=== PATIENT | male | born 1980 | race Caucasian/White ===

== ENCOUNTER 2019-01-19 14:31 | Emergency (ER) | payer BC ==
[2019-01-19 14:43] VITALS: BP 150/98; PULSE 95; RESP 16; TEMP 97.8
--- NOTE | 2019-01-19 15:15 | XR ---
EXAMINATION TYPE: XR ankle complete RT DATE OF EXAM: 01/19/2019 COMPARISON: NONE HISTORY: Pain FINDINGS: Three views of the ankle demonstrate the ankle mortise to be intact and symmetric. The joint spaces are preserved. The osseous structures are intact. There is a bony density inferior to the medial ma lleolus which appears corticated and chronic. Tiny spur involving the calcaneus. IMPRESSION: 1. No definite acute fracture or dislocation, if symptoms persist follow-up study in 7 to 10 days wou ld be suggested.
--- NOTE | 2019-01-19 15:16 | XR ---
EXAMINATION TYPE: XR foot complete RT DATE OF EXAM: 01/19/2019 COMPARISON: NONE HISTORY: Pain TECHNIQUE: Three views are submitted. FINDINGS: The osseous structures are intact. There is no acute fracture or dislocation. Joint spaces are p reserved. IMPRESSION: 1. No acute fracture or dislocation. If symptoms persist, follow-up exam in 7 to 10 days could be ob tained.
--- NOTE | 2019-01-19 15:41 | XR ---
EXAMINATION TYPE: XR tibia fibula RT DATE OF EXAM: 01/19/2019 CLINICAL HISTORY: Pain after twisting injury. TECHNIQUE: Two views of the right leg are obtained. COMPARISON: Right ankle x-ray earlier today. FINDINGS: There is no acute fracture or dislocation seen in the right tibia or fibula. The visualiz ed right knee joint appears within normal limits. Suspect old avulsion fracture from medial malleolus redemonstrated. The overlying soft tissue appears unremarkable. IMPRESSION: There is no acute fracture or dislocation seen in the right tibia or fibula.
--- NOTE | 2019-01-19 16:25 | ED ---
General Adult HPI - General Chief complaint: Extremity Injury, Lower Stated complaint: ankle injury Time Seen by Provider: 01/19/19 14:45 Source: patient, RN notes reviewed, old records reviewed Mode of arrival: wheelchair Limitations: no limitations - History of Present Illness Initial comments: 39-year-old male patient past history presents ED after he had a right ankle inversion injury last night. Patient reports that he was walking downstairs, had a right inversion ankle injury. Patient denies any other injury, trauma to head or neck. Patient has been nonambulatory secondary to pain and right ankle, patient denies all other complaints. Systemic: Pt denies fatigue, fever/chills, rash. Pt denies weakness, night sweats, weight loss. Neuro: Pt denies headache, visual disturbances, syncope or pre-syncope. HEENT: Pt denies ocular discharge or irritation, otalgia, rhinorrhea, pharyngitis or notable lymphadenopathy. Cardiopulmonary: Pt denies chest pain, SOB, heart palpitations, dyspnea on exertion. Abdominal/GI: Pt denies abdominal pain, n/v/d. : Pt denies dysuria, burning w/ urination, frequency/urgency. Denies new onset urinary or bowel incontinence. MSK: Pt denies loss of strength or function in extremities. Neuro: Pt denies new onset weakness, paresthesias. - Related Data Previous Rx's Medication Instructions Recorded Ibuprofen [Motrin] 600 mg PO Q6HR PRN #40 day 01/19/19 Allergies Allergy/AdvReac Type Severity Reaction Status Date / Time No Known Allergies Allergy Verified 01/19/19 14:42 Review of Systems ROS Statement: Those systems with pertinent positive or pertinent negative responses have been documented in the HPI. ROS Other: All systems not noted in ROS Statement are negative. Past Medical History Past Medical History: No Reported History History of Any Multi-Drug Resistant Organisms: None Reported Past Surgical History: Hernia Repair Past Psychological History: No Psychological Hx Reported Smoking Status: Current every day smoker Past Alcohol Use History: Occasional Past Drug Use History: None Reported General Exam - General Exam Comments Initial Comments: Constitutional: NAD, AOX3, Pt has pleasant affect. HEENT: NC/AT, trachea midline, neck supple, no lymphadenopathy. Posterior pharynx non erythematous, without exudates. External ears appear normal, without discharge. Mucous membranes moist. Eyes PERRLA, EOM intact. There is no scleral icterus. No pallor noted. Cardiopulmonary: RRR, no murmurs, rubs or gallops, no JVD noted. Lungs CTAB in anterior and posterior morse. No peripheral edema. Abdominal exam: Abdomen soft and non-distended. Abdomen non-tender to palpation in all 4 quadrants. Bowel sounds active in LLQ. No hepatosplenomegaly. No ecchymosis Neuro: CN II-XII grossly intact. No nuchal rigidity. MSK: Right ankle neurovascularly intact, no ecchymoses, mild tenderness to palpation in the lateral malleolus. Plantar and dorsiflexion intact. Patient able to his. ambulate with antalgic gait. No posterior calf tenderness bilaterally, homans sign negative bilaterally. Posterior tibialis and radial pulse +2 bilaterally. Sensation intact in upper and lower extremities. Full active ROM in upper and lower extremities, 5/5 stregnth. Limitations: no limitations Course Vital Signs 01/19/19 14:40 Temperature 97.8 F Pulse Rate 95 Respiratory 16 Rate Blood Pressure 150/98 O2 Sat by Pulse 96 Oximetry Medical Decision Making - Medical Decision Making 39-year-old male patient past history presents ED after he had a right ankle inversion injury last night. Patient reports that he was walking downstairs, had a right inversion ankle injury. Patient denies any other injury, trauma to head or neck. Patient has been nonambulatory secondary to pain and right ankle, patient denies all other complaints. Patient vital signs stable, afebrile. Physical exam displayed:Right ankle neurovascularly intact, no ecchymoses, mild tenderness to palpation in the lateral malleolus. Plantar and dorsiflexion intact. Patient able to his. ambulate with antalgic gait. Patient plain films of right ankle-foot anterior fibular did not display acute pathology. Patient placed in a posterior ankle splint. Pt neurovascularly intact after splint placement. Patient not bear weight, use crutches. Patient to follow up with orthopedic surgeon and primary care physician one to 2 days. Patient return to ER for symptoms or condition worsens. Case discussed with Dr. Sow. Disposition Clinical Impression: Ankle sprain Disposition: HOME SELF-CARE Condition: Stable Instructions (If sedation given, give patient instructions): Ankle Sprain (ED) Additional Instructions: Patient to adhere to previously discussed treatment plan and will take medication(s) as directed. Patient to follow up with PCP in 1-2 days. Patient to return to ED if symptoms do not improve. Please do not bear weight on right ankle. Please follow-up with primary care provider and orthopedic surgeon in 1-2 days. Return to ER if condition worsens in any way. Prescriptions: Ibuprofen [Motrin] 600 mg PO Q6HR PRN #40 day PRN Reason: Pain Is patient prescribed a controlled substance at d/c from ED?: No Referrals: None,Stated [Primary Care Provider] - 1-2 days Ben Marvin MD [STAFF PHYSICIAN] - 1-2 days
== END 2019-01-19 16:58 | disposition home or self-care (01) ==
LOC: EC 14:31
DX: S93.401A Sprain of unspecified ligament of right ankle, initial encounter (principal); F17.200 Nicotine dependence, unspecified, uncomplicated; Z98.890 Other specified postprocedural states; X50.1XXA Overexertion from prolonged static or awkward postures, initial encounter; Y93.01 Activity, walking, marching and hiking
CPT/HCPCS: 29515; 99284

== ENCOUNTER → 2019-03-30 | Outpatient (CLI) | payer BC ==
[2019-03-30 19:37] LABS: Cholesterol 262 mg/dL (0-200)
[2019-03-30 21:24] LABS: Hemoglobin A1C 5.5 % (4.0-6.0)
== END | disposition home or self-care (01) ==
LOC: LABWHC1 11:33
PROVIDERS: ATTEND Physician Assistant
DX: Z00.00 Encounter for general adult medical examination without abnormal findings (principal); R53.83 Other fatigue; R63.5 Abnormal weight gain; R73.09 Other abnormal glucose
CPT/HCPCS: 36415; 80061; 83036; 83721; 84402; 84403; 84439; 84443

== ENCOUNTER 2019-12-24 14:51 | Emergency (ER) | payer BC ==
[2019-12-24 15:01] VITALS: BP 117/79; PULSE 94; RESP 18; TEMP 97.5
--- NOTE | 2019-12-24 15:35 | XR ---
EXAMINATION TYPE: XR chest 2V DATE OF EXAM: 12/24/2019 COMPARISON: NONE HISTORY: Cough and congestion TECHNIQUE: 2 views FINDINGS: Heart and mediastinum are normal. Lungs are clear. Diaphragm is normal. Bony thorax appears normal. IMPRESSION: Normal chest.
--- NOTE | 2019-12-24 15:39 | ED ---
General Adult HPI - General Chief complaint: Skin/Abscess/Foreign Body Stated complaint: Lump on neck/Cough/ALONZO Time Seen by Provider: 12/24/19 15:04 Source: patient, RN notes reviewed Mode of arrival: ambulatory - History of Present Illness Initial comments: 39-year-old male presents to the emergency department for a chief complaint of "bump under his chin." Patient states that she has had these 2 bumps for 2-3 weeks. States he saw his primary care provider who gave him an antibiotic, unknown, and a steroid. Patient finished this a week ago without improvement. Patient admits to a dentist who told him that his salivary gland is not producing saliva so it could be an obstruction. Patient states he has an appointment with the ENT on January 12. Patient denies fevers or chills. Patient also presents for cough and congestion. This just started a few days ago.Patient has no other complaints at this time including shortness of breath, chest pain, abdominal pain, nausea or vomiting, headache, or visual changes. - Related Data Previous Rx's Medication Instructions Recorded Ibuprofen [Motrin] 600 mg PO Q6HR PRN #40 day 01/19/19 Fluticasone Nasal Nelson [Flonase 1 spray EA NOSTRIL DAILY 7 Days #1 12/24/19 Nasal Nelson] bottle guaiFENesin [Mucinex] 600 mg PO Q12HR #20 tablet.er 12/24/19 Allergies Allergy/AdvReac Type Severity Reaction Status Date / Time No Known Allergies Allergy Verified 12/24/19 15:01 Review of Systems ROS Statement: Those systems with pertinent positive or pertinent negative responses have been documented in the HPI. ROS Other: All systems not noted in ROS Statement are negative. Past Medical History Past Medical History: No Reported History History of Any Multi-Drug Resistant Organisms: None Reported Past Surgical History: Hernia Repair Past Psychological History: No Psychological Hx Reported Smoking Status: Current every day smoker Past Alcohol Use History: Occasional Past Drug Use History: None Reported General Exam General appearance: alert, in no apparent distress Head exam: Present: atraumatic, normocephalic, normal inspection Eye exam: Present: normal appearance, PERRL, EOMI. Absent: scleral icterus, conjunctival injection, periorbital swelling ENT exam: Present: normal exam, mucous membranes moist, TM's normal bilaterally, normal external ear exam. Absent: normal oropharynx (Patient does have some tenderness of the sublingual salivary duct worse on the right side. He has palpable small induration noted on the underside of the chin about 1 cm x 1 cm. no erythema) Neck exam: Present: normal inspection, full ROM. Absent: tenderness, meningismus, lymphadenopathy, thyromegaly (no induration or lesions palpted of the thyroid) Respiratory exam: Present: normal lung sounds bilaterally. Absent: respiratory distress, wheezes, rales, rhonchi, stridor Cardiovascular Exam: Present: regular rate, normal rhythm, normal heart sounds. Absent: systolic murmur, diastolic murmur, rubs, gallop, clicks Neurological exam: Present: alert Course Vital Signs 12/24/19 14:55 Temperature 97.5 F L Pulse Rate 94 Respiratory 18 Rate Blood Pressure 117/79 O2 Sat by Pulse 95 Oximetry Medical Decision Making - Medical Decision Making Patient was seen and evaluated upon arrival. Vitals are stable. Patient is well-appearing. HPI and physical exam as documented. I discussed risks versus benefits of CAT scan patient to evaluate these nodules. At this time he is in agreement to follow up with ENT as the risks of radiation are high for findings of a benign exam. He has an appointment in about 3 weeks. He denies any changes in these labs and states he will return if they grow larger. I did perform a chest x-ray on patient because of his cough which was negative. Influenza negative. I will prescribe Mucinex and a nasal spray for upper respiratory infection. He will return with any worsening symptoms.I discussed this case with attending Dr. Peralta who agrees with this assessment and treatment plan. - Lab Data Lab Results 12/24/19 Range/Units 15:02 Influenza Type A RNA Not Detected (Not Detectd) Influenza Type B (PCR) Not Detected (Not Detectd) Disposition Clinical Impression: Cough Disposition: HOME SELF-CARE Condition: Good Instructions (If sedation given, give patient instructions): Acute Cough (ED) Additional Instructions: Please follow up with ENT at your scheduled appointment. Continue to try sour candies. If you have worsening symptoms before your appointment return to the emergency department. Otherwise take prescriptions as directed. Prescriptions: Fluticasone Nasal Nelson [Flonase Nasal Nelson] 1 spray EA NOSTRIL DAILY 7 Days #1 bottle guaiFENesin [Mucinex] 600 mg PO Q12HR #20 tablet.er Is patient prescribed a controlled substance at d/c from ED?: No Referrals: Lyla Beltran MD [REFERRING] - 1-2 days Time of Disposition: 16:05
== END 2019-12-24 16:20 | disposition home or self-care (01) ==
LOC: EC 14:51
DX: J06.9 Acute upper respiratory infection, unspecified (principal); R22.0 Localized swelling, mass and lump, head; F17.200 Nicotine dependence, unspecified, uncomplicated
CPT/HCPCS: 71046; 87502; 99283

== ENCOUNTER 2020-02-08 08:28 | Day surgery (SDC) | payer BC ==
--- NOTE | 2020-02-08 10:50 | US ---
ULTRASOUND GUIDED FNA AND CORE BIOPSY PALPABLE NECK MASS: CLINICAL HISTORY: Palpable neck mass FINDINGS: The procedure was explained to the patient. The risks, complications, benefits and alternatives were discussed and any questions were answered. Informed consent was obtained. Patient was placed supin e on the ultrasound table and prepped and draped in the usual sterile fashion. Utilizing a 25 gauge needle, three passes were made into the questioned mass. Additionally, an 18-gauge core biopsy sampl e was obtained. Patient was stable throughout the procedure. Pathology is pending. All elements of maximal barrier technique were utilized. IMPRESSION: 1. Successful ultrasound guided FNA and core biopsy of the requested neck mass.
[2020-02-08 13:46] VITALS: TEMP 97.9
[2020-02-08 13:48] VITALS: PULSE 80; RESP 18
[2020-02-08 13:49] VITALS: BP 148/95
== END 2020-02-08 11:00 | disposition home or self-care (01) ==
LOC: RADPROMAIN 08:28
PROVIDERS: ATTEND Otolaryngology
DX: R59.0 Localized enlarged lymph nodes (principal)
CPT/HCPCS: 10005; 38505; 88305

== ENCOUNTER 2022-12-09 16:45 | Emergency (ER) | payer BC ==
[2022-12-09 17:08] VITALS: BP 154/93; PULSE 99; RESP 16; TEMP 97.3
[2022-12-09 18:30] LABS: Basophils # (A) 0.1 k/uL (0-0.2); Basophils % (A) 1 %; Eosinophils # (A) 0.2 k/uL (0-0.7); Eosinophils % (A) 2 %; HCT 44.6 % (39.0-53.0); HGB 15.8 gm/dL (13.0-17.5); Lymphocytes % (A) 22 %; MCH 31.2 pg (25.0-35.0); MCHC 35.4 g/dL (31.0-37.0); MCV 88.2 fL (80.0-100.0); Mean Platelet Volume 7.2; Monocytes # (A) 0.6 k/uL (0-1.0); Monocytes % (A) 6 %; Neutrophils # (A) 6.2 k/uL (1.3-7.7); Neutrophils % (A) 68 %; Platelet Count 232 k/uL (150-450); RBC 5.06 m/uL (4.30-5.90); RDW 12.1 % (11.5-15.5); WBC 9.2 k/uL (3.8-10.6)
[2022-12-09 18:45] LABS: ALT 217 U/L (4-49); AST 123 U/L (17-59); African American GFR (CKD) >90 (>60 ml/min/1.73 sqM); Alkaline Phosphatase 91 U/L (38-126); Anion Gap 11 mmol/L; Blood Urea Nitrogen 11 mg/dL (9-20); Calcium 9.3 mg/dL (8.4-10.2); Carbon Dioxide 21 mmol/L (22-30); Chloride 105 mmol/L (98-107); Glucose 103 mg/dL (74-99); Non-African American GFR(CKD) >90 (>60 ml/min/1.73 sqM); Sodium 137 mmol/L (137-145); Total Bilirubin 0.9 mg/dL (0.2-1.3); Total Protein 8.6 g/dL (6.3-8.2)
--- NOTE | 2022-12-09 19:01 | CT ---
EXAMINATION TYPE: CT facial bones w con, CT soft tissue neck w con DATE OF EXAM: 12/09/2022 COMPARISON: None HISTORY: left sided pain CT DLP: 505.8 (accession [id number]), 517.7 (accession [id number]) mGycm CONTRAST: CT scan of the neck fascial planes is performed with IV Contrast, patient injected with 100 mL of Iso nish 300. Contrast enhanced CT of the neck patient was performed from the chest through the lung apices. Facial bones: Dental amalgam results in streak artifact limiting portions of the study. Dental caries involving the left first incisor. Small periapical abscess seen on axial image 16 of 100. No evidenc e for soft tissue abscess. Mild soft tissue swelling. AIRWAY: The supraglottic, glottic, and subglottic portions of the airway appear patent and free of mass. SALIVARY GLANDS: The submandibular and parotid glands are free of mass or inflammatory process. THYROID GLAND: No nodules or masses seen. LYMPH NODES: No adenopathy seen greater than 1cm. LUNG APICES: No nodule or mass is seen. OTHER: Vascular structures are patent. No significant degenerative change of the cervical spine. N o abscess seen. Mastoids are well aerated. IMPRESSION: 1.Dental caries involving the left first incisor. Small periapical abscess seen on axial image 16 of 100. No evidence for soft tissue abscess. Mild soft tissue swelling. 2. Unremarkable CT of the neck.
[2022-12-09 19:19] LABS: Potassium 5.2 mmol/L (3.5-5.1)
[2022-12-09] MEDS ORDERED: AMOXIC-POT CLAV 875-125MG 1 EACH TAB PO STA (19:50)
[2022-12-09] MEDS ORDERED: KETOROLAC 15 MG/ML 1 ML VIAL IM STA (19:50)
--- NOTE | 2022-12-09 19:50 | ED ---
General Adult HPI - General Chief complaint: Dental/Oral Stated complaint: dental pain Time Seen by Provider: 12/09/22 17:48 Source: patient Mode of arrival: ambulatory Limitations: no limitations - History of Present Illness Initial comments: Patient is a 42-year-old male presenting with chief complaint of dental pain. Pain is located on the left side and has been ongoing for the last week. Patient has history of dental abscesses due to multiple fractured teeth. He states he has an upcoming appointment with a dentist. He denies any difficulty breathing or swallowing. He does admit to some pain up in the yazidism as well as slightly down the neck. States that drinking water helps make it feel slightly better. - Related Data Previous Rx's Medication Instructions Recorded Ibuprofen [Motrin] 600 mg PO Q6HR PRN #40 day 01/19/19 Fluticasone Nasal Thompson [Flonase 1 spray EA NOSTRIL DAILY 7 Days #1 12/24/19 Nasal Thompson] bottle guaiFENesin [Mucinex] 600 mg PO Q12HR #20 tablet.er 12/24/19 Amoxic-Pot Clav 875-125Mg 1 tab PO Q12HR 7 Days #14 tab 12/09/22 [Augmentin 875-125] Allergies Allergy/AdvReac Type Severity Reaction Status Date / Time No Known Allergies Allergy Verified 12/09/22 17:08 Review of Systems ROS Statement: Those systems with pertinent positive or pertinent negative responses have been documented in the HPI. ROS Other: All systems not noted in ROS Statement are negative. Past Medical History Past Medical History: No Reported History History of Any Multi-Drug Resistant Organisms: None Reported Past Surgical History: Hernia Repair Past Psychological History: No Psychological Hx Reported Smoking Status: Current every day smoker Past Alcohol Use History: Occasional Past Drug Use History: None Reported - Past Family History Mother Family Medical History: Hypertension General Exam Limitations: no limitations General appearance: alert, in no apparent distress Head exam: Present: atraumatic, normocephalic, normal inspection Eye exam: Present: normal appearance, PERRL, EOMI. Absent: scleral icterus, conjunctival injection, periorbital swelling Expanded Mouth exam: Present: normal external inspection, tongue normal. Absent: drooling, trismus, muffled voice Teeth exam: Present: dental caries, fractured tooth #, dental tenderness #, gingival enlargement Throat exam: normal inspection Neck exam: Present: normal inspection, full ROM Neurological exam: Present: alert, oriented X3, CN II-XII intact Psychiatric exam: Present: normal affect, normal mood Skin exam: Present: warm, dry, intact, normal color. Absent: rash Course Vital Signs 12/09/22 17:03 Temperature 97.3 F L Pulse Rate 99 Respiratory 16 Rate Blood Pressure 154/93 O2 Sat by Pulse 96 Oximetry Medical Decision Making - Medical Decision Making Was pt. sent in by a medical professional or institution (, PA, SHOT MAN, urgent care, hospital, or retirement...) When possible be specific @ -No Did you speak to anyone other than the patient for history (EMS, parent, family, police, friend...)? What history was obtained from this source @ -No Did you review nursing and triage notes (agree or disagree)? Why? @ -I reviewed and agree with nursing and triage notes Were old charts reviewed (outside hosp., previous admission, EMS record, old EKG, old radiological studies, urgent care reports/EKG's, retirement records)? Report findings @ -No old charts were reviewed Differential Diagnosis (chest pain, altered mental status, abdominal pain women, abdominal pain men, vaginal bleeding, weakness, fever, dyspnea, syncope, headache, dizziness, GI bleed, back pain, seizure, CVA, palpatations, mental health)? @ -Differential includes tooth pain, dental abscess, Ted's angina, cellulitis and/or abscess extending to the facial structures EKG interpreted by me (3pts min.). @ -As above X-rays interpreted by me (1pt min.). @ -None done CT interpreted by me (1pt min.). @ -No, radiologist report is reviewed. Dental caries involving the left first incisor. Small periapical abscess seen. No evidence for soft tissue abscess. Mild soft tissue swelling. Unremarkable CT of the neck. U/S interpreted by me (1pt. min.). @ -None done What testing was considered but not performed or refused? (CT, X-rays, U/S, labs)? Why? @ -None What meds were considered but not given or refused? Why? @ -None Did you discuss the management of the patient with other professionals (professionals i.e. , MICHAEL, SHOT MAN, lab, RT, psych nurse, social media marketing specialist, stretching machine tender frame, teacher, transport corps officer, field case manager)? Give summary @ -No Was smoking cessation discussed for >3mins.? @ -No Was critical care preformed (if so, how long)? @ -No Were there social determinants of health that impacted care today? How? (Homelessness, low income, unemployed, alcoholism, drug addiction, transportation, low edu. Level, literacy, decrease access to med. care, custodial, rehab)? @ -No Was there de-escalation of care discussed even if they declined (Discuss DNR or withdrawal of care, Hospice)? DNR status @ -No What co-morbidities impacted this encounter? (DM, HTN, Smoking, COPD, CAD, Cancer, CVA, ARF, Chemo, Hep., AIDS, mental health diagnosis, sleep apnea, morbid obesity)? @ -None Was patient admitted / discharged? Hospital course, mention meds given and route, prescriptions, significant lab abnormalities, going to OR and other pertinent info. @ -Patient is a 42-year-old male presenting with chief complaint of left-sided dental pain that been ongoing for the last week. On physical examination there is some tenderness to the yazidism as well as the neck. Due to extensive tenderness lab work are obtained. No leukocytosis. Potassium 5.2, however sample was hemolyzed. Elevated AST and ALT, no current abdominal pain. CT of the face and neck show periapical abscess, no extending abscess. Patient will be treated for dental abscess with Augmentin. Given a dose of Toradol here in the ER. Instructed to follow-up with his dentist, he states he has an upcoming appointment. Follow-up with PCP. Report back to ER with any new or worsening symptoms. Discussed return parameters and answered all questions. Patient conveyed verbal understanding and agreed to the plan. I discussed this case in detail with my attending Dr. Latham Undiagnosed new problem with uncertain prognosis? @ -No Drug Therapy requiring intensive monitoring for toxicity (Heparin, Nitro, Insulin, Cardizem)? @ -No Were any procedures done? @ -No Diagnosis/symptom? @ -Dental abscess Acute, or Chronic, or Acute on Chronic? @ -Acute Uncomplicated (without systemic symptoms) or Complicated (systemic symptoms)? @ -Uncomplicated Side effects of treatment? @ -No Exacerbation, Progression, or Severe Exacerbation? @ -No - Lab Data Result diagrams: 12/09/22 18:21 12/09/22 18:21 Lab Results 12/09/22 12/09/22 Range/Units 18:21 18:21 WBC 9.2 (3.8-10.6) k/uL RBC 5.06 (4.30-5.90) m/uL Hgb 15.8 (13.0-17.5) gm/dL Hct 44.6 (39.0-53.0) % MCV 88.2 (80.0-100.0) fL MCH 31.2 (25.0-35.0) pg MCHC 35.4 (31.0-37.0) g/dL RDW 12.1 (11.5-15.5) % Plt Count 232 (150-450) k/uL MPV 7.2 Neutrophils % 68 % Lymphocytes % 22 % Monocytes % 6 % Eosinophils % 2 % Basophils % 1 % Neutrophils # 6.2 (1.3-7.7) k/uL Lymphocytes # 2.0 (1.0-4.8) k/uL Monocytes # 0.6 (0-1.0) k/uL Eosinophils # 0.2 (0-0.7) k/uL Basophils # 0.1 (0-0.2) k/uL Sodium 137 (137-145) mmol/L Potassium 5.2 H (3.5-5.1) mmol/L Chloride 105 (98-107) mmol/L Carbon Dioxide 21 L (22-30) mmol/L Anion Gap 11 mmol/L BUN 11 (9-20) mg/dL Creatinine 0.88 (0.66-1.25) mg/dL Est GFR (CKD-EPI)AfAm >90 (>60 ml/min/1.73 sqM) Est GFR (CKD-EPI)NonAf >90 (>60 ml/min/1.73 sqM) Glucose 103 H (74-99) mg/dL Calcium 9.3 (8.4-10.2) mg/dL Total Bilirubin 0.9 (0.2-1.3) mg/dL AST 123 H (17-59) U/L ALT 217 H (4-49) U/L Alkaline Phosphatase 91 (38-126) U/L Total Protein 8.6 H (6.3-8.2) g/dL Albumin 5.0 (3.5-5.0) g/dL Disposition Clinical Impression: Dental abscess Disposition: HOME SELF-CARE Condition: Good Instructions (If sedation given, give patient instructions): Dental Abscess (ED) Additional Instructions: Follow-up with dentist. Report back to ER with any new or worsening symptoms. Take medication as prescribed. Prescriptions: Amoxic-Pot Clav 875-125Mg [Augmentin 875-125] 1 tab PO Q12HR 7 Days #14 tab Is patient prescribed a controlled substance at d/c from ED?: No Referrals: None,Stated [Primary Care Provider] - 1-2 days Time of Disposition: 19:50
[2022-12-09] MEDS ORDERED: KETOROLAC 15 MG/ML 1 ML VIAL IVP STA (20:06)
== END 2022-12-09 20:11 | disposition home or self-care (01) ==
LOC: EC 16:45
DX: K04.7 Periapical abscess without sinus (principal); F17.200 Nicotine dependence, unspecified, uncomplicated
CPT/HCPCS: 36415; 80053; 85025; 70487; 70491; 99283; 96374; J1885; Q9967

== ENCOUNTER 2023-06-16 12:10 | Emergency (ER) | payer SELFPAY ==
[2023-06-16 12:16] VITALS: BP 143/89; PULSE 121; RESP 18; TEMP 98.9
[2023-06-16] MEDS ORDERED: DIPH,PERTUS(ACELL)TETVAC-LF 0.5 ML VIAL IM ONE (12:44)
--- NOTE | 2023-06-16 12:56 | ED ---
General Adult HPI - General Chief complaint: Fall Stated complaint: Injury to Nose Time Seen by Provider: 06/16/23 12:17 Source: patient, police Mode of arrival: ambulatory - History of Present Illness Initial comments: Dictation was produced using 2U dictation software. please excuse any grammatical, word or spelling errors. Chief Complaint: 43-year-old male presents with suicidal ideation and facial trauma History of Present Illness: 43-year-old male with history of alcoholism presents to the ER for suicidal comments and fall. At around 11 PM last night he fell. He doesn't remember how he felt confused from. He went to bed and woke up with police at his doorstep who apprehended the patient told him that he was given be brought to the ER for psychiatric evaluation. He understands that he made some suicidal comments last night. He does not feel suicidal today. Patient drinks several beers daily and has been going on for years. Last alcohol intake was earlier this morning The ROS documented in this emergency department record has been reviewed and confirmed by me. Those systems with pertinent positive or negative responses have been documented in the HPI. All other systems are other negative and/or noncontributory. - Related Data Home Medications Medication Instructions Recorded Confirmed No Known Home Medications 06/16/23 06/16/23 Allergies Allergy/AdvReac Type Severity Reaction Status Date / Time No Known Allergies Allergy Verified 06/16/23 15:19 Review of Systems ROS Statement: Those systems with pertinent positive or pertinent negative responses have been documented in the HPI. ROS Other: All systems not noted in ROS Statement are negative. Past Medical History Past Medical History: No Reported History History of Any Multi-Drug Resistant Organisms: None Reported Past Surgical History: Hernia Repair Past Psychological History: No Psychological Hx Reported Smoking Status: Current every day smoker Past Alcohol Use History: Occasional Past Drug Use History: None Reported - Past Family History Mother Family Medical History: Hypertension General Exam - General Exam Comments Initial Comments: PHYSICAL EXAM: General Impression: Alert and oriented x3, not in acute distress HEENT: Vision to the bridge of the nose, some blood seen at the gingival margin of the front teeth, no facial crepitus, extra-ocular movements intact, pupils equal and reactive to light bilaterally, mucous membranes moist. Cardiovascular: Heart regular rate and rhythm Chest: Able to complete full sentences, no retractions, no tachypnea Abdomen: abdomen soft, non-tender, non-distended, no organomegaly Musculoskeletal: Pulses present and equal in all extremities, no peripheral edema Motor: no focal deficits noted Neurological: CN II-XII grossly intact, no focal motor or sensory deficits noted Skin: Intact with no visualized rashes Psych: Normal affect and mood Course Vital Signs 06/16/23 12:14 Temperature 98.9 F Pulse Rate 121 H Respiratory 18 Rate Blood Pressure 143/89 O2 Sat by Pulse 97 Oximetry Medical Decision Making - Medical Decision Making Was pt. sent in by a medical professional or institution (, PA, VENEER PATCHER, urgent care, hospital, or care home...) When possible be specific @ -No Did you speak to anyone other than the patient for history (EMS, parent, family, police, friend...)? What history was obtained from this source @ -No Did you review nursing and triage notes (agree or disagree)? Why? @ -I reviewed and agree with nursing and triage notes Were old charts reviewed (outside hosp., previous admission, EMS record, old EKG, old radiological studies, urgent care reports/EKG's, care home records)? Report findings @ -No old charts were reviewed Differential Diagnosis (chest pain, altered mental status, abdominal pain women, abdominal pain men, vaginal bleeding, musculoskeletal, weakness, fever, dyspnea, syncope, headache, dizziness, GI bleed, back pain, seizure, CVA, palpatations, mental health)? @ -Differential Mental Health: Depression, anxiety, bipolar, psychosis, schizophrenia, borderline personality, situational depression, adjustment disorder, behavioral disorder, brain tumor, malingering, substance abuse, encephalopathy, medication reaction, dementia, hypothyroidism, degenerative neurologic disorder, lupus.... This is not meant to be all-inclusive list EKG interpreted by me (3pts min.). @ -None done X-rays interpreted by me (1pt min.). @ -None done CT interpreted by me (1pt min.). @ -CT scan of brain and face shows no acute processes U/S interpreted by me (1pt. min.). @ -None done What testing was considered but not performed or refused? (CT, X-rays, U/S, labs)? Why? @ -None What meds were considered but not given or refused? Why? @ -None Did you discuss the management of the patient with other professionals (professionals i.e. , PA, VENEER PATCHER, lab, RT, psych nurse, social work coordinator, fitness worker, teacher, staff nuclear weapons officer, immigration case worker)? Give summary @ -Case discussed with EPS nurse who evaluated patient and recommended discharge Was smoking cessation discussed for >3mins.? @ -No Was critical care preformed (if so, how long)? @ -No Were there social determinants of health that impacted care today? How? (Homelessness, low income, unemployed, alcoholism, drug addiction, transportation, low edu. Level, literacy, decrease access to med. care, [facility], rehab)? @ -No Was there de-escalation of care discussed even if they declined (Discuss DNR or withdrawal of care, Hospice)? DNR status @ -No What co-morbidities impacted this encounter? (DM, HTN, Smoking, COPD, CAD, Cancer, CVA, ARF, Chemo, Hep., AIDS, mental health diagnosis, sleep apnea, morbid obesity)? @ -None Was patient admitted / discharged? Hospital course, mention meds given and route, prescriptions, significant lab abnormalities, going to OR and other pertinent info. @ -43-year-old male presents emergency department for psychiatric evaluation he also suffered a fall last night. Patient has abrasions to the face. Vital si gns stable. Patient well-appearing at bedside. Imaging studies of the brain and face shows no acute intracranial process. Labs are within acceptable limits. Patient cleared medically. EPS outpatient discharge. Tetanus updated. Undiagnosed new problem with uncertain prognosis? @ -No Drug Therapy requiring intensive monitoring for toxicity (Heparin, Nitro, Insulin, Cardizem)? @ -No Were any procedures done? @ -No Diagnosis/symptom? Acute, or Chronic, or Acute on Chronic? Uncomplicated (without systemic symptoms) or Complicated (systemic symptoms)? @ -1. Fall, 2. Alcohol intoxication, 3. Suicidal behavior Side effects of treatment? @ -No Exacerbation, Progression, or Severe Exacerbation? @ -No Poses a threat to life or bodily function? How? (Chest pain, [place], [place], pneumonia, PE, COPD, DKA, ARF, appy, cholecystitis, CVA, Diverticulitis, Homicidal, Suicidal, threat to staff... and all critical care pts) @ -yes - Lab Data Result diagrams: 06/16/23 12:56 06/16/23 12:56 Lab Results 06/16/23 06/16/23 Range/Units 12:56 12:56 WBC 8.3 (3.8-10.6) k/uL RBC 5.10 (4.30-5.90) m/uL Hgb 16.6 (13.0-17.5) gm/dL Hct 47.8 (39.0-53.0) % MCV 93.9 (80.0-100.0) fL MCH 32.6 (25.0-35.0) pg MCHC 34.7 (31.0-37.0) g/dL RDW 12.6 (11.5-15.5) % Plt Count 231 (150-450) k/uL MPV 7.4 Neutrophils % 63 % Lymphocytes % 27 % Monocytes % 5 % Eosinophils % 2 % Basophils % 1 % Neutrophils # 5.3 (1.3-7.7) k/uL Lymphocytes # 2.3 (1.0-4.8) k/uL Monocytes # 0.4 (0-1.0) k/uL Eosinophils # 0.2 (0-0.7) k/uL Basophils # 0.0 (0-0.2) k/uL Sodium 140 (137-145) mmol/L Potassium 4.0 (3.5-5.1) mmol/L Chloride 108 H (98-107) mmol/L Carbon Dioxide 18 L (22-30) mmol/L Anion Gap 14 mmol/L BUN 7 L (9-20) mg/dL Creatinine 0.98 (0.66-1.25) mg/dL Est GFR (CKD-EPI)AfAm >90 (>60 ml/min/1.73 sqM) Est GFR (CKD-EPI)NonAf >90 (>60 ml/min/1.73 sqM) Glucose 92 (74-99) mg/dL Calcium 8.8 (8.4-10.2) mg/dL Total Bilirubin 0.7 (0.2-1.3) mg/dL AST 88 H (17-59) U/L ALT 140 H (4-49) U/L Alkaline Phosphatase 91 (38-126) U/L Total Protein 7.7 (6.3-8.2) g/dL Albumin 4.5 (3.5-5.0) g/dL Serum Alcohol 102 mg/dL Disposition Clinical Impression: Fall Disposition: HOME SELF-CARE Condition: Good Instructions (If sedation given, give patient instructions): Fall Prevention (ED) Is patient prescribed a controlled substance at d/c from ED?: No Referrals: None,Stated [Primary Care Provider] - 1-2 days Time of Disposition: 17:56
[2023-06-16 13:19] LABS: Basophils % (A) 1 %; Eosinophils # (A) 0.2 k/uL (0-0.7); Eosinophils % (A) 2 %; HCT 47.8 % (39.0-53.0); HGB 16.6 gm/dL (13.0-17.5); Lymphocytes # (A) 2.3 k/uL (1.0-4.8); Lymphocytes % (A) 27 %; MCH 32.6 pg (25.0-35.0); MCHC 34.7 g/dL (31.0-37.0); MCV 93.9 fL (80.0-100.0); Mean Platelet Volume 7.4; Monocytes # (A) 0.4 k/uL (0-1.0); Monocytes % (A) 5 %; Neutrophils # (A) 5.3 k/uL (1.3-7.7); Neutrophils % (A) 63 %; Platelet Count 231 k/uL (150-450); RDW 12.6 % (11.5-15.5); WBC 8.3 k/uL (3.8-10.6)
--- NOTE | 2023-06-16 13:32 | CT ---
EXAMINATION TYPE: CT brain wo con DATE OF EXAM: 06/16/2023 COMPARISON: None HISTORY: Fall last night CT DLP: [address] of the brain was performed. The ventricles, basal cisterns and sulci overlying the cerebral convexities demonstrate a normal appe arance. There is no evidence for intracranial hemorrhage or sulcal effacement. No mass effects are seen. Osseous calvarium is intact. If symptoms persist consider MRI as clinically warranted. IMPRESSION: 1. No acute intracranial process is seen at this time.
[2023-06-16 13:33] LABS: ALT 140 U/L (4-49); AST 88 U/L (17-59); African American GFR (CKD) >90 (>60 ml/min/1.73 sqM); Albumin 4.5 g/dL (3.5-5.0); Alkaline Phosphatase 91 U/L (38-126); Anion Gap 14 mmol/L; Blood Urea Nitrogen 7 mg/dL (9-20); Calcium 8.8 mg/dL (8.4-10.2); Carbon Dioxide 18 mmol/L (22-30); Chloride 108 mmol/L (98-107); Glucose 92 mg/dL (74-99); Non-African American GFR(CKD) >90 (>60 ml/min/1.73 sqM); Sodium 140 mmol/L (137-145); Total Bilirubin 0.7 mg/dL (0.2-1.3); Total Protein 7.7 g/dL (6.3-8.2)
[2023-06-16 13:36] LABS: Alcohol 102 mg/dL
--- NOTE | 2023-06-16 13:37 | CT ---
EXAMINATION TYPE: CT facial bones wo con DATE OF EXAM: 06/16/2023 COMPARISON: 12/09/2022 HISTORY: Fall last night CT DLP: [address] of the facial bones was performed in the axial and coronal planes. Bone and soft tissu e window settings are submitted. There is soft tissue swelling noted to the upper lip region. There is lucency noted within the nasal spine which was seen previously and therefore is not considered an acute fracture. Osseous structures as visualized appear to be intact. The globes are intact. Paranasal sinuses are well-aerated. IMPRESSION: 1. No evidence for acute depressed or displaced facial bone fracture.
== END 2023-06-16 18:23 | disposition home or self-care (01) ==
LOC: EC 12:10
DX: S09.92XA Unspecified injury of nose, initial encounter (principal); F17.200 Nicotine dependence, unspecified, uncomplicated; W19.XXXA Unspecified fall, initial encounter
CPT/HCPCS: 36415; 70450; 70486; 80053; 80320; 82075; 85025; 99284

== ENCOUNTER 2023-07-28 08:09 | Emergency (ER) | payer BC ==
[2023-07-28 08:14] VITALS: RESP 18
--- NOTE | 2023-07-28 08:31 | ED ---
General Adult HPI - General Chief complaint: Extremity Injury, Lower Stated complaint: Lt leg pain Time Seen by Provider: 07/28/23 08:11 Source: patient, RN notes reviewed, old records reviewed Mode of arrival: ambulatory Limitations: no limitations - History of Present Illness Initial comments: 43-year-old male presenting with left calf pain. Patient was at a concert, jumping and felt a sudden pain in the left calf region. This occurred 2 days prior. He's been able to walk but does have persistent pain. He has noted some swelling to the posterior calf on the left side. No other injury, no other symptoms. - Related Data Previous Rx's Medication Instructions Recorded Ibuprofen [Motrin] 600 mg PO Q8HR PRN #24 tab 07/28/23 Allergies Allergy/AdvReac Type Severity Reaction Status Date / Time No Known Allergies Allergy Verified 07/28/23 08:14 Review of Systems ROS Statement: Those systems with pertinent positive or pertinent negative responses have been documented in the HPI. ROS Other: All systems not noted in ROS Statement are negative. Past Medical History Past Medical History: No Reported History History of Any Multi-Drug Resistant Organisms: None Reported Past Surgical History: Hernia Repair Past Psychological History: No Psychological Hx Reported Smoking Status: Current every day smoker Past Alcohol Use History: Occasional Past Drug Use History: None Reported - Past Family History Mother Family Medical History: Hypertension General Exam Limitations: no limitations General appearance: alert, in no apparent distress Head exam: Present: atraumatic, normocephalic Eye exam: Present: normal appearance, PERRL ENT exam: Present: normal exam Neck exam: Present: normal inspection. Absent: tenderness, meningismus Respiratory exam: Present: normal lung sounds bilaterally. Absent: respiratory distress, wheezes Cardiovascular Exam: Present: regular rate, normal rhythm GI/Abdominal exam: Present: soft. Absent: distended Extremities exam: Present: calf tenderness (Tenderness, soft tissue swelling to the calf. Compartments are soft. Distal pulses intact, no numbness in the foot. Patient is able to dorsiflex and plantar flex at the ankle) Psychiatric exam: Present: normal affect, normal mood Skin exam: Present: warm, dry, intact Course Vital Signs 07/28/23 07/28/23 07/28/23 08:12 09:11 09:56 Temperature 97.7 F 98.1 F 98 F Pulse Rate 106 H 95 94 Respiratory 18 18 18 Rate Blood Pressure 138/81 139/76 135/72 O2 Sat by Pulse 96 97 97 Oximetry Medical Decision Making - Medical Decision Making Was pt. sent in by a medical professional or institution (MICHAEL Singer, SURGICAL INSTRUMENT MAKER, urgent care, hospital, or care home...) When possible be specific @ -No Did you speak to anyone other than the patient for history (EMS, parent, family, police, friend...)? What history was obtained from this source @ -No Did you review nursing and triage notes (agree or disagree)? Why? @ -I reviewed and agree with nursing and triage notes Were old charts reviewed (outside hosp., previous admission, EMS record, old EKG, old radiological studies, urgent care reports/EKG's, care home records)? Report findings @ -No old charts were reviewed Differential Diagnosis (chest pain, altered mental status, abdominal pain women, abdominal pain men, vaginal bleeding, weakness, fever, dyspnea, syncope, headache, dizziness, GI bleed, back pain, seizure, CVA, palpatations, mental health, musculoskeletal)? @ -Calf strain, gastrocnemius muscle tear, Achilles rupture, DVT EKG interpreted by me (3pts min.). @ -As above X-rays interpreted by me (1pt min.). @ -None done CT interpreted by me (1pt min.). @ -None done U/S interpreted by me (1pt. min.). @ -[Ultrasound negative for DVT What testing was considered but not performed or refused? (CT, X-rays, U/S, labs)? Why? @ -None What meds were considered but not given or refused? Why? @ -None Did you discuss the management of the patient with other professionals (professionals i.e. MICHAEL Singer, SURGICAL INSTRUMENT MAKER, lab, RT, psych nurse, criminal justice social worker, assistant drafter, teacher, global chief creative officer, case management coordinator)? Give summary @ -No Was smoking cessation discussed for >3mins.? @ -No Was critical care preformed (if so, how long)? @ -No Were there social determinants of health that impacted care today? How? (Homelessness, low income, unemployed, alcoholism, drug addiction, transportation, low edu. Level, literacy, decrease access to med. care, retirement, rehab)? @ -No Was there de-escalation of care discussed even if they declined (Discuss DNR or withdrawal of care, Hospice)? DNR status @ -No What co-morbidities impacted this encounter? (DM, HTN, Smoking, COPD, CAD, Cancer, CVA, ARF, Chemo, Hep., AIDS, mental health diagnosis, sleep apnea, morbid obesity)? @ -None Was patient admitted / discharged? Hospital course, mention meds given and route, prescriptions, significant lab abnormalities, going to OR and other pertinent info. @43-year-old male with history suggestive of muscle strain or partial muscle tear. He is able to plantar flex and dorsiflex at the ankle. He has swelling in the calf but the compartments are soft. He has no numbness into the foot. Distal pulses are intact. Ultrasound is negative for DVT. Instructed to elevate and ice the extremity and take Motrin for pain. If symptoms do not improve he should follow with orthopedics. Undiagnosed new problem with uncertain prognosis? @ -No Drug Therapy requiring intensive monitoring for toxicity (Heparin, Nitro, Insulin, Cardizem)? @ -No Were any procedures done? @ -No Diagnosis/symptom? @ -[Calf strain Acute, or Chronic, or Acute on Chronic? @ -Acute Uncomplicated (without systemic symptoms) or Complicated (systemic symptoms)? @ -default Side effects of treatment? @ -No Exacerbation, Progression, or Severe Exacerbation? @ -No Poses a threat to life or bodily function? How? (Chest pain, [place], [place], pneumonia, PE, COPD, DKA, ARF, appy, cholecystitis, CVA, Diverticulitis, Homicidal, Suicidal, threat to staff... and all critical care pts) @ -No Disposition Clinical Impression: Strain of calf muscle Disposition: HOME SELF-CARE Instructions (If sedation given, give patient instructions): Muscle Strain (ED) Prescriptions: Ibuprofen [Motrin] 600 mg PO Q8HR PRN #24 tab PRN Reason: Pain Is patient prescribed a controlled substance at d/c from ED?: No Referrals: None,Stated [Primary Care Provider] - 1-2 days Nathan Vinson DO [Doctor of Osteopathic Medicine] - 1-2 days Time of Disposition: 09:41
--- NOTE | 2023-07-28 09:23 | US ---
EXAMINATION TYPE: US venous doppler duplex LE LT DATE OF EXAM: 07/28/2023 9:02 AM COMPARISON: NONE CLINICAL INDICATION: Male, 43 years old with history of pain/swelling; Left leg pain SIDE PERFORMED: Left TECHNIQUE: The lower extremity deep venous system is examined utilizing real time linear array sonog ken with graded compression, doppler sonography and color-flow sonography. VESSELS IMAGED: Common Femoral Vein Deep Femoral Vein Greater Saphenous Vein * Femoral Vein Popliteal Vein Small Saphenous Vein * Proximal Calf Veins (* superficial vessels) Left Leg: Appears negative for DVT IMPRESSION: Left lower extremity ultrasound negative for deep venous thrombosis.
[2023-07-28 09:58] VITALS: BP 135/72; PULSE 94; TEMP 98
== END 2023-07-28 09:58 | disposition home or self-care (01) ==
LOC: EC 08:09
DX: S86.912A Strain of unspecified muscle(s) and tendon(s) at lower leg level, left leg, initial encounter (principal); F17.200 Nicotine dependence, unspecified, uncomplicated; X50.1XXA Overexertion from prolonged static or awkward postures, initial encounter
CPT/HCPCS: 99283

== ENCOUNTER 2024-10-20 08:42 | Day surgery (SDC) | payer BC ==
[2024-10-18 15:09] VITALS: BMI 36.9
[2024-10-20] MEDS: LACTATED RINGERS 1,000 ML IV ONE (09:15)
[2024-10-20 09:29] VITALS: TEMP 97.3
[2024-10-20] MEDS ORDERED: LIDOCAINE 2% (PF) 20 MG/ML 5 ML VIAL ONE (09:38)
[2024-10-20] MEDS ORDERED: fentaNYL (PF) 50 MCG/ML 2 ML AMP ONE (09:38)
[2024-10-20] MEDS ORDERED: PROPOFOL 10 MG/ML 20 ML VIAL IV ONE (09:38)
--- NOTE | 2024-10-20 09:42 | P.GSHP ---
History of Present Illness H&P Date: 10/20/24 Chief Complaint: Gerd, history of diverticulitis This is a 44-year-old male with complaints of gerd history of diverticulitis. Patient presents today for EGD and colonoscopy. Patient had a attack of diverticulitis in April or May of this year. Past Medical History Past Medical History: No Reported History History of Any Multi-Drug Resistant Organisms: None Reported Past Surgical History: Hernia Repair Additional Past Surgical History / Comment(s): colonoscopy, egd Past Anesthesia/Blood Transfusion Reactions: No Reported Reaction Additional Past Anesthesia/Blood Transfusion Reaction / Comment(s): no blood transfusion Smoking Status: Current every day smoker - Past Family History Mother Family Medical History: Hypertension Medications and Allergies Home Medications Medication Instructions Recorded Confirmed Type Ibuprofen [Motrin] 600 mg PO Q8HR PRN #24 tab 07/28/23 10/20/24 Rx Simvastatin [Zocor] 10 mg PO HS 10/20/24 10/20/24 History amLODIPine [Norvasc] 5 mg PO DAILY 10/20/24 10/20/24 History Allergies Allergy/AdvReac Type Severity Reaction Status Date / Time No Known Allergies Allergy Verified 10/20/24 09:19 Surgical - Exam Vital Signs Temp Pulse Resp BP Pulse Ox 97.3 F L 90 14 146/67 95 10/20/24 09:25 10/20/24 09:25 10/20/24 09:25 10/20/24 09:25 10/20/24 09:25 - General well developed, well nourished, no distress - Eyes PERRL - ENT normal pinna - Neck no masses - Respiratory normal expansion - Cardiovascular Rhythm: regular - Abdomen Abdomen: soft, non tender Assessment and Plan Assessment: History of GERD and diverticulitis. Will perform EGD and colonoscopy.
--- NOTE | 2024-10-20 10:10 | P.OP ---
Date of Procedure: 10/20/24 Preoperative Diagnosis: Gerd History of diverticulitis Postoperative Diagnosis: Antral gastritis Sliding hiatal hernia Esophagitis Hemorrhoids Rectal polyp Procedure(s) Performed: EGD Colonoscopy Anesthesia: MAC Surgeon: Gera Fam Pathology: other (Antrum, esophagus, rectal polyp) Condition: stable Disposition: PACU Description of Procedure: The patient was placed on the endoscopy table in the lateral position. He received IV sedation. The gas was placed oropharynx passed in the esophagus into the stomach. Scope was then placed through the pylorus. The first and second portion of the duodenum appeared normal. Scope was then brought back in the antrum this appeared mildly Flaim. A biopsy performed. Scope was then retroflexed and the remainder of the stomach appeared normal. The GE junction was at 38 cm. There was a sliding hiatal hernia. The GE junction was examined and the distal esophagus appeared mildly Flaim. A biopsy performed. The scope was then withdrawn. The proximal esophagus appeared normal. Scope withdrawn for the patient. Next digital rectal exams performed. There is evidence of some external hemorrhoids. There is also a lesion which appeared to have the appearance of a anal condyloma or skin tag. The flexible colonoscope was then placed patient anus and passed throughout the entire colon. The ileocecal valve was visualized. The cecum, ascending and transverse colon appeared normal. The descending and sigmoid colon appeared normal. In the rectum there was a small sessile polyp. This removed with a cold forcep. The scope withdrawn for the patient.
[2024-10-20 10:36] VITALS: BP 126/84; PULSE 75; RESP 16
== END 2024-10-20 11:25 | disposition home or self-care (01) ==
LOC: ORWHC2ENDO 08:42
PROVIDERS: ATTEND Surgery
DX: K29.50 Unspecified chronic gastritis without bleeding (principal); K62.1 Rectal polyp; K21.00 Gastro-esophageal reflux disease with esophagitis, without bleeding; K44.9 Diaphragmatic hernia without obstruction or gangrene; K57.32 Diverticulitis of large intestine without perforation or abscess without bleeding; G47.33 Obstructive sleep apnea (adult) (pediatric); F17.210 Nicotine dependence, cigarettes, uncomplicated; K64.8 Other hemorrhoids; Z90.89 Acquired absence of other organs; Z98.890 Other specified postprocedural states; Z82.49 Family history of ischemic heart disease and other diseases of the circulatory system; Z79.899 Other long term (current) drug therapy
CPT/HCPCS: 88305; 45380; 43239; J3010; J2704; J2003